=== PATIENT | female | born 1985 | race African-American/Black ===

== ENCOUNTER 2019-05-28 21:54 | Emergency (ER) | payer MEDICARE, OTHER ==
[~2019-05-28] VITALS: Ht 157.5 cm; Wt 66.7 kg
[2019-05-29 00:39] VITALS: BP 135/75
[2019-05-29] MEDS ORDERED: cefTRIAXone SOD 1,000 MG VL IM ONE (01:00)
[2019-05-29] MEDS ORDERED: HYDROcodone-ACET 10/325MG TAB PO ONE (01:00)
[2019-05-29] MEDS ORDERED: LIDOCAINE 1% HCL (LOCAL ANESTH.) INJ 20ML MDV ID ONE (01:00)
[2019-05-29] MEDS ORDERED: ONDANSETRON ODT 4 MG TAB PO ONE (01:15)
== END 2019-05-29 01:40 | disposition home or self-care (01) ==
LOC: ER 21:54
DX: L02.414 Cutaneous abscess of left upper limb (principal); N18.5 Chronic kidney disease, stage 5
CPT/HCPCS: 10060; 82962; 96372; 99283; J0696; J2001; Q0162